=== PATIENT | male | born 1980 | race Caucasian/White ===

== ENCOUNTER 2025-04-09 20:47 | Emergency (ER) | payer OTHER, SELFPAY ==
--- NOTE | ~2025-04-09 | XR_ITS ---
XR elbow LT min 3V Ordering provider: Chelsie Lopez MD History: . fall, pain, swelling . Comparison: None. FINDINGS: BONES: Fracture in the radial head is noted. JOINT SPACES: Normal. SOFT TISSUES: Elevation of the anterior fat pad. No definite joint effusion. IMPRESSION: Fracture in the radial head. Follow-up advised. Reviewed, dictated and finalized at location A.
--- OUTSIDE RECORDS SUMMARY | 2025-04-09 20:49 | XMS_ITS | Clinical Summary ---
Author Organization [facility] Address [address] [place] [address] Care Team Providers Care In Shop Service Technician Name Role Phone Savage Gonzalez DO Primary Care Provider + Allergies No known active allergies Medications No known medications Active Problems Problem Noted Date Diagnosed Date BMI 22.0-22.9, adult 06/30/2020 Encounters Date Type Department Care Team Description 01/15/2025 Results Follow-Up [facility] Family & Internal Medicine [address] [phone] Savage Gonzalez DO VITAMIN D, 25 OH, LIPID PANEL, COMPREHENSIVE METABOLIC PANEL, Additional followed-up results: 2 01/13/2025 9:00 AM CDT Office Visit [facility] Family & Internal [address] [phone] Savage Gonzalez DO Physical (Presents for annual physical. No concerns. ) 01/13/2025 Travel from Last 3 Months Immunizations Immunization Administration Dates Next Due Tdap (Historical Only-select from [employer]) 06/30/2020 Family History Medical History Relation Comments No Known Problems Father Cancer Maternal Grandfather Prostate Ca ncer Cancer Maternal Grandmother Colon Cance r Colon Cancer Maternal Grandmother Diabetes Maternal Uncle 1 Diabetes Maternal Uncle 2 Breast Cancer Mother Cancer Mother Breast Cancer Hypertension Mother Early Paternal Grandfather Heart Attac k at 50 Prostate Cancer Paternal Grandfather Alcohol Abuse Sister Relation Status Comments Father Maternal Grandfather Maternal Grandmother Maternal Uncle 1 Maternal Uncle 2 Mother Paternal Grandfather Sister Social History Tobacco Use Types Packs/Day Years Used Date Smoking Tobacco: Never Smokeless Tobacco: Never Tobacco Cessation:Counseling Given: Not Answered Alcohol Use Standard Drinks/Week Comments Not Currently 0 (1 standard drink = 0.6 oz pur e alcohol) AUDIT-C Answer Date Recorded Q1: How often do you have a drink containing alc ohol? Monthly or less 06/30/2020 Q2: How many drinks containi ng alcohol do you have on a typical day when you are drinking? 1 or 2 06/30/2020 Q3: How often do you have si x or more drinks on one occasion? 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 on file Not on file Not on paradise e Last Filed Vital Signs Vital Sign Reading Time Taken Comments Blood Pressure 100/58 01/13/2025 9:17 AM CDT Pulse 63 01/13/2025 9:17 AM CDT Temperature 36.8 C (98.2 F) 01/13/2025 9:17 AM CDT Respiratory Rate 16 01/13/2025 9:17 AM CDT Oxygen Saturation 98% 01/13/2025 9:17 AM CDT Inhaled Oxygen Concentration - - Weight 75.9 kg (167 lb 6.4 oz) 01/13/2025 9:17 A M CDT Height 180.3 cm (5' 11) 01/13/2025 9:17 AM CDT Body Mass Index 23.35 01/13/2025 9:17 AM CDT Plan of Treatment Upcoming Encounters Date Type Department Care Team (Late st Contact Info) Description 08/06/2025 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 [facility] Family & Internal Medicine [address] [phone] Savage Gonzalez, [address] [place] [address] 01/19/2026 9:00 AM CDT Office Visit [facility] Family & Internal Medicine - [address] [phone] [place] [address] [place] [address] Health Maintenance Due Date Last Done Comments Hepatitis B Vaccines (1 of 3 - 19+ 3-dose series) 2001 Annual Physical 01/13/2026 01/13/2025, 01/11/2024, 06/30/2020 COVID-19 Vaccine (3 - 2023-2 5 season) 2026 01/27/2021, 01/05/2021 Postponed from 06/02/2024 (Patient Refused) DTaP, Tdap and Td Vaccines ( 2 - Td or Tdap) 06/30/2030 06/30/2020 Hepatitis C Completed 01/11/2024 PHQ-2 (Physician [place]) Completed 01/13/2025 HPV Vaccines Aged Out No longer eligi ble based on patient's age to complete this topic Meningococcal B Vaccine Aged Out No l onger eligible based on patient's age to complete this topic Meningococcal Vaccine Aged Out No karuna kelli eligible based on patient's age to complete this topic Pneumococcal Vaccine: Pediatrics (0 to 5 Years) and At-Risk Patients (6 to 49 Years) Aged Out No longer eligible b ased on patient's age to complete this topic RSV Immunizations Under 20 Months Aged Out No longer eligible b ased on patient's age to complete this topic Procedures Procedure Name Priority Date/Time Associated Diagnosis Comments TSH W/REFLEX Routine 01/13/2025 11:35 AM CDT Encounter for preventative adult health care examination Screening for lipid disorders Screening for endocrine, metabolic and immunity disorder CBC W/DIFF AUTOMATED Routine 01/13/2025 11:35 AM CDT Encounter for preventative adult health care examination Screening for lipid disorders Screening for endocrine, metabolic and immunity disorder COMPREHENSIVE METABOLIC PANEL Routine 01/13/2025 11:35 AM CDT Encounter for preventative adult health care examination Screening for lipid disorders Screening for endocrine, metabolic and immunity disorder LIPID PANEL Routine 01/13/2025 11:35 AM CDT Encounter for preventative adult health care examination Screening for lipid disorders Screening for endocrine, metabolic and immunity disorder VITAMIN D, 25 OH Routine 01/13/2025 11:3 5 AM CDT Encounter for preventative adult health care examination Screening for lipid disorders Screening for endocrine, metabolic and immunity disorder Vitamin D deficiency COLLECTION VENOUS BLOOD VENIPUNCTURE Routine 01/13/2025 9:32 AM CDT Encounter for preventative adult health care examination Screening for lipid disorders Screening for endocrine, metabolic and immunity disorder HEPATITIS C ANTIBODY Routine 01/11/2024 10:14 AM CDT Encounter for preventative adult health care examination Screening for lipid disorders Screening for endocrine, metabolic and immunity disorder Need for hepatitis C screening test from Last 3 Months or Most Recently Relevant to Health Maintenance Results * TSH W/REFLEX (01/13/2025 11:35 AM CDT) TSH 1.500 0.358 - 3.740 uIU/ML 01/13/2025 2:48 PM CDT [facility] 01/13/2025 11:3 5 AM CDT Savage Gonzalez DO LABORATORY Final Re sult [facility] [address] [place] [address], [place] [phone] * COMPREHENSIVE METABOLIC PANEL (01/13/2025 11:35 AM CDT) SODIUM S/P/B 140 136 - 145 MMOL/L 01/13/2025 2:[address] [facility] POTASSIUM S/P/B 4.8 3.5 - 5.1 MMOL/L 01/13/2025 2:48 PM CDT [facility] CHLORIDE S/P/B 105 98 - 107 MMOL/L 01/13/2025 2:48 PM CDT [facility] CO2 29.2 21 - 32 MMOL/L 01/13/2025 2:48 PM CDT [facility] GLUCOSE 94 70 - 99 MG/DL 01/13/2025 2:48 PM CDT [facility] BUN 14 7 - 18 MG/DL 01/13/2025 2:48 PM CDT [facility] CREATININE S/P/B 0.85 0.70 - 1.30 MG/DL 01/13/2025 2:48 PM CDT [facility] CALCIUM S/P/B 9.2 8.4 - 10.5 MG/DL 01/13/2025 2:48 PM CDT [facility] BILIRUBIN TOTAL S/P/B 0.6 0.2 - 1.0 MG/DL 01/13/2025 2:48 PM CDT [facility] ALKALINE PHOSPHATASE S/P/B 67 45 - 115 U/L 01/13/2025 2:48 PM CDT [facility] AST 17 15 - 37 U/L 01/13/2025 2:48 PM CDT [facility] ALT 46 16 - 63 U/L 01/13/2025 2:48 PM CDT [facility] TOTAL PROTEIN S/P/B 7.4 6.4 - 8.2 G/DL 01/13/2025 2:48 PM CDT [facility] ALBUMIN S/P/B 4.3 3.4 - 5.0 G/DL 01/13/2025 2:48 PM CDT [facility] ANION GAP 5.8 5 - 15 MMOL/L 01/13/2025 2:48 PM CDT [facility] Comment:REFERENCE RANGE NOT ESTABLISHED OSMOLALITY (CALC) 290 MOSM/KG 04/14/2 025 2:48 PM CDT [facility] Comment:REFERENCE RANGE NOT ESTABLISHED GFR ESTIMATE >90 >90 ML/MIN/1. 73 M2 01/13/2025 2:48 PM CD[address] [facility] GFR NOTES GFR REFERENCE S: 01/13/2025 2:48 PM [address] [facility] Comment: THE ESTIMATED GFR IS CALCULATED USING THE 2020 CKD-EPI EQUATION. THE FOLLOWING CATEGORIES FOR GRADING RENAL FUNCTION ARE RECOMMENDED BY THE INTERNATIONAL SOCIETY OF NEPHROLOGY (KDIGO 2012 CLINICAL PRACTICE GUIDELINE). G1,NORMAL OR HIGH: >89 ml/min/1.73 m2 G2,MILDLY DECREASED: 60-89 ml/min/1.73 m2 G3A,MILDLY TO MODERATELY DECREASED: 45-59 ml/min/1.73 m2 G3B,MODERATELY TO SEVERELY DECREASED: 30-44 ml/min/1.73 m2 G4,SEVERELY DECREASED: 15-29 ml/min/1.73 m2 G5,KIDNEY FAILURE: <15 ml/min/1.73 m2 01/13/2025 11:3 5 AM CDT us Savage Gonzalez DO LABORATORY Final Re sult [facility] [address] [place] [address], [place] [phone] * (ABNORMAL) LIPID PANEL (01/13/2025 11:35 AM CDT) CHOLESTEROL 246(H) <200 MG/DL 01/13/2025 2:48 PM CD[address] [facility] TRIGLYCERIDES 65 <150 MG/DL 01/13/2025 2:48 PM CDT [facility] HDL 45 >40 MG/DL 01/13/2025 2:48 PM CDT [facility] LDL-C 188(H) <100 MG/DL 01/13/2025 2:48 PM CDT [facility] VLDL CALCULATION 13 5 - 28 MG/DL 01/13/2025 2:48 PM CDT [facility] CHOL/HDL RATIO 5.5(H) 0.0 - 4.0 01/13/2025 2:48 [address] [facility] LDL/HDL 4.2(H) 0.41 - 2.13 01/13/2025 2:48 PM CDT [facility] NON HDL CHOLESTEROL 201(H) <140 MG/DL 01/13/2025 2:48 PM CDT [facility] 01/13/2025 11:3 5 AM CDT Savage Gonzalez DO LABORATORY Final Re sult [facility] [address] [place] [address], * CBC W/DIFF AUTOMATED (01/13/2025 11:35 AM CDT) WBC 4.56 4.00 - 10.80 x10'3/uL 01/13/2025 2:[address] [facility] RBC 4.95 4.50 - 6.10 x10'6/uL 01/13/2025 2:10 PM CD[address] [facility] HGB 14.8 13.0 - 18.0 G/DL 01/13/2025 2:10 PM [address] [facility] HCT 43.8 37.0 - 52.0 % 01/13/2025 2:10 PM [address] [facility] MCV 88.5 78.0 - 100.0 FL 01/13/2025 2:10 PM [address] [facility] MCH 29.9 27.0 - 31.0 PG 01/13/2025 2:[address] [facility] MCHC 33.8 33.0 - 36.0 G/DL 01/13/2025 2:10 PM CDT [facility] RDW 12.4 11.5 - 14.5 % 01/13/2025 2:10 PM CDT -[facility] PLT 253 150 - 350 x10'3/uL 01/13/2025 2:10 PM CD[address] [facility] MPV 9.6 7.4 - 10.4 FL 01/13/2025 2:[address] [facility] DIFFERENTIAL TYPE AUTOMATED DIFFERENTIAL 01/13/2025 2:10 [address] [facility] NEUTROPHILS % 43.8 % 01/13/2025 2:[address] [facility] LYMPHOCYTES % 46.1 % 01/13/2025 2:[address] [facility] MONOCYTES % 8.1 % 01/13/2025 2:10 [address] [facility] EOSINOPHILS % 1.8 % 01/13/2025 2:10 PM CDT [facility] BASOPHILS % 0.2 % 01/13/2025 2:[address] [facility] IMMATURE GRANS % 0.0 % 01/13/2025 2:[address] [facility] ABS. NEUTROPHILS 2.00 1.60 - 8.30 x10'3/uL 01/13/2025 2:[address] [facility] ABS. LYMPHOCYTES 2.10 0.80 - 4.70 x10'3/uL 01/13/2025 2:[address] [facility] ABS. MONOCYTES 0.37 0.00 - 1.50 x10'3/uL 01/13/2025 2:[address] [facility] ABS. EOSINOPHILS 0.08 0.00 - 0.40 x10'3/uL 01/13/2025 2:10 [address] [facility] ABS. BASOPHILS 0.01 0.00 - 0.20 x10'3/uL 01/13/2025 2:[address] [facility] ABS. IMMATURE GRANULOCYTES 0.00 0.00 - 0.03 x10'3/uL 01/13/2025 2:[address] [facility] 01/13/2025 11:3 5 AM CDT Savage Gonzalez DO LABORATORY Final Re sult Performing Organization Address [facility] de Phone Number [facility] [address] [place] [address], [place] [phone] * VITAMIN D, 25 OH (01/13/2025 11:35 AM CDT) Pathologist [facility] VITAMIN D 25 HYDROXY TOTAL S/P/B 36.3 30 - 100 NG/ML 01/13/2025 2:48 PM CD[address] [facility] Comment: DEFICIENT <20 INSUFFICIENT 20-30 SUFFICIENT 30-100 01/13/2025 11:3 5 AM CDT Savage Gonzalez DO LABORATORY Final Re sult Performing Organization Address [facility] de Phone Number [address] [address], [place] [phone] * HEPATITIS C ANTIBODY (01/11/2024 10:14 AM CDT) Pathologist [facility] HEPATITIS C AB NON-REACTI VE NON-REACT JAIME 01/11/2024 6:52 PM CDT [facility] Comment: ANTIBODIES TO HCV NOT DETECTED. DOES NOT EXCLUDE THE POSSIBILITY OF EXPOSURE TO HCV. 01/11/2024 10:1 4 AM CDT Savage Gonzalez DO LABORATORY Final Re sult Performing Organization Address [facility] Co de Phone Number [facility] [address] [place] [address], [id number] from Last 3 Months or Most Recently Relevant to Health Maintenance Insurance Care Teams In Shop Service Technician Relationship Specialty Start Date End Date Savage Gonzalez DO [address] [place] [address] PCP - General FAMILY PRACTICE 06/30/20
--- OUTSIDE RECORDS SUMMARY | 2025-04-09 20:50 | XMS_ITS | Continuity of Care Document ---
Author Organization [facility] Address [address] [place] [address] [place] [address] Phone Care Team Providers Care Track Leader Name Role Phone Akira Trent Unavailable Unavailable Procedures Procedure Date OT Re-Evaluation Therapeutic Activities Neuromuscular Re-Ed Therapeutic Exercise Manual Therapy Theratube/band Therapeutic Activities Manual Therapy Therapeutic Exercise Neuromuscular Re-Ed Progress Note Therapeutic Activities Neuromuscular Re-Ed Therapeutic Exercise Manual Therapy Therapeutic Activities Neuromuscular Re-Ed Therapeutic Exercise Manual Therapy Therapeutic Activities Neuromuscular Re-Ed Therapeutic Exercise Manual Therapy Therapeutic Activities Manual Therapy Therapeutic Exercise Neuromuscular Re-Ed OT Evaluation Low Complexity Therapeutic Exercise Therapeutic Activities Manual Therapy PT Re-evaluation Therapeutic Activities Neuromuscular Re-Ed Therapeutic Exercise Therapeutic Activities Neuromuscular Re-Ed Therapeutic Exercise Manual Therapy PT Re-evaluation Neuromuscular Re-Ed Therapeutic Exercise Manual Therapy Therapeutic Activities Neuromuscular Re-Ed Therapeutic Exercise Manual Therapy Therapeutic Activities Neuromuscular Re-Ed Therapeutic Exercise Therapeutic Activities Neuromuscular Re-Ed Therapeutic Exercise Manual Therapy Therapeutic Activities Neuromuscular Re-Ed Therapeutic Exercise Manual Therapy Progress Note Therapeutic Activities Neuromuscular Re-Ed Manual Therapy Therapeutic Exercise Therapeutic Activities Therapeutic Exercise Neuromuscular Re-Ed Manual Therapy Therapeutic Activities Manual Therapy Neuromuscular Re-Ed Therapeutic Exercise Therapeutic Activities Therapeutic Exercise Neuromuscular Re-Ed Manual Therapy Therapeutic Activities Neuromuscular Re-Ed Therapeutic Exercise Manual Therapy PT Evaluation Moderate Complexity Neuromuscular Re-Ed Therapeutic Exercise Advance Directives Directive Yes / No Effective Date File Name No Information Encounters Encounter Description Practice Location Reason(s) For Visit Diagnoses Date Provider Providers Copied on Encounter [facility], [id number], tel:[phone] [place] No Information 0 Ravi Champion. . Referring Provider: Savage Gonzalez , [address] [place] [address], [id number]. tel:[phone] [facility] [address], [id number], tel:[phone] [place] No Information 0 Ravi Champion. . Referring Provider: Savage Gonzalez , [address] [place] [address], [address]. tel:[phone] [place] [address], [id number], tel:[phone] [place] No Information Nov-1 0-202 0 Ravi Zhaoyne. . Referring Provider: Savage Gonzalez , [address] [place] [address], [address]. tel:[phone] [place] [address], [id number], tel:[phone] [place] No Information Nov-0 6-202 0 Ravi Akira. . Referring Provider: Savage Gonzalez , [address] [place] [address], [address]. tel:[phone] [place] [address], [id number], tel:[phone] [place] No Information Nov-0 4-202 0 Ravi Zhaoyne. . Referring Provider: Savage Gonzalez , [address] [place] [address], [address]. tel:[phone] [place] [address], [id number], tel:[phone] [place] No Information Oct-3 0-202 0 Ravi Champion. . Referring Provider: Savage Gonzalez , [address] [place] [address], [address]. tel:[phone] [place] [address], [id number], tel:[phone] [place] No Information Jul-2 8-202 0 Ravi Zhaoyne. . Referring Provider: Savage Gonzalez [address] [place] [address], [address]. tel:[phone] [place] [address], [id number], tel:[phone] [place] No Information 1-202 [address] Yousif [address] [place] [address], [place], [place], [facility], [place]. tel: [phone] Referring Provider: [facility]. [address], [place], [place], [id number], tel:[phone] [place] No Information May-0 4-202 0 Muehl Luis. [address] [place] [address], [address], [place], [facility], [place]. tel: [phone] Referring Provider: [facility]. [address], [place], [place], [id number], [place] tel:[phone] [place] No Information Apr-2 9-202 0 Muehl Luis. [address] [place] [address], [address], [place], [place], [facility], [place]. tel: [phone] Referring Provider: [facility]. [place] [address], [place], [place], [id number], tel:[phone] [place] No Information Apr-2 7-202 0 Muehl Luis. [address] [place] [address], [address], [place], [facility], [place]. tel: [phone] Referring Provider: [facility] [employer]. [address], [place], [place], [id number], tel:[phone] [place] No Information Apr-2 2-202 0 Muehl Luis. [address] [place] [address], [address], [place], [facility], [place]. tel: [phone] Referring Provider: [facility]. [address], [place], [place], [id number], [place] tel:[phone] [place] No Information Apr-2 1-202 0 Muehl Luis. [address] [place] [address], [address], [place], [facility], [place]. tel: [phone] Referring Provider: [facility] [employer]. [address], [place], [id number], [place] tel:[phone] [place] No Information Apr-1 6-202 0 Muehl Luis. [address] [place] [address], [address], [place], [facility], . tel: [phone] Referring Provider: [facility]. [address], [place], [place], [id number], tel:[phone] [place] No Information Apr-1 4-202 0 Muehl Luis. [address] [place] [address], [address], [place], [facility], [place]. tel: [phone] Referring Provider: [facility] [employer]. [address] [place] [address], [place], [place], [id number], tel:[phone] [place] No Information Apr-1 0-202 0 Muehl Luis. [address] [place] [address], [address], [place], [facility], . tel: [phone] Referring Provider: [facility] [employer]. [address], [place], [place], [id number], tel:[phone] [place] No Information Apr-0 7-202 0 Muehl Luis. [address] [place] [address], [address], [place], [facility], [place]. tel: [phone] Referring Provider: [facility] [employer]. [address] [place] [address], [place], [place], [id number], tel:[phone] [place] No Information Apr-0 3-202 0 Muehl Luis. [address] [place] [address], [address], [place], [facility], [place]. tel: [phone] Referring Provider: [facility] [employer]. [address], [place], [place], [id number], tel:[phone] [place] No Information Mar-3 1-202 0 Muehl Luis. [address] [place] [address], [address], [place], [facility], [place]. tel: [phone] Referring Provider: [facility]. Family History Family Member Type Diagnosis Age At Onset No Information Payers Payer name Insurance type Covered libertarian ID Natalie davidson(s) [facility] [id number] Social History Type Description Quantity Date Captured Comments Alcohol Use Details Unknown Caffeine Use Details Unknown Tobacco Use Status Current non-smoker 20 Smoking Status Never smoker Non-Smoking Tobacco Use Details : No Details Available : No Details Available Sex Male Chief Complaint And Reason For Visit No Information Reason For Referral Reason For Referral No Information History Of Present Illness Encounter Date Complaint History Of Prese nt Illness No Information Functional Status Date Functional Assessmen t No Information Instructions Date Instruction Additional Infor mation No Information Assessments Type Assessment Date No Information Patient Care Teams Name Effective Dates (start - stop) Status Members No Information
[2025-04-09 21:00] VITALS: BP 153/84; PULSE 97; RESP 18; TEMP 36.3; O2SAT 98
--- OUTSIDE RECORDS SUMMARY | 2025-04-09 22:09 | XMS_ITS | Clinical Summary ---
Author Organization [facility] Address [address] [place] [address] Care Team Providers Care Brazing Machine Tender Name Role Phone Savage Gonzalez DO Primary Care Provider + Allergies No known active allergies Medications No known medications Active Problems Problem Noted Date Diagnosed Date BMI 22.0-22.9, adult 06/30/2020 Encounters Date Type Department Care Team Description 01/15/2025 Results Follow-Up [facility] Family & Internal Medicine [address] [phone] Savage Gonzalez DO VITAMIN D, 25 OH, LIPID PANEL, COMPREHENSIVE METABOLIC PANEL, Additional followed-up results: 2 01/13/2025 9:00 AM CDT Office Visit [facility] Family & Internal [address] [phone] Savage Gonzalez DO Physical (Presents for annual physical. No concerns. 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 Not on file Not [...] st Contact Info) Description 08/06/2025 8:00 AM [employer] Laboratory Only [facility] Family & Internal Medicine [address] [address] Savage Gonzalez, [address] [place] [address] 01/19/2026 9:00 AM CDT Office Visit [facility] Family & Internal Medicine - [address] [phone] [place] [address] [place] [address] Health Maintenance Due Date Last Done Comments Hepatitis B Vaccines (1 of 3 - 19+ 3-dose series) 2001 Annual Physical 01/13/2026 01/13/2025, 01/11/2024, 06/30/2020 COVID-19 Vaccine (3 - 2023-2 5 season) 2026 01/27/2021, 01/05/2021 Postponed from 06/02/2024 (Patient Refused) DTaP, Tdap and Td Vaccines ( 2 - Td or Tdap) 06/30/2030 06/30/2020 Hepatitis C Completed 01/11/2024 PHQ-2 (Physician [place]) Completed 01/13/2025 HPV Vaccines Aged Out No [...] - 3.740 uIU/ML 01/13/2025 2:48 PM CDT [facility] 01/13/2025 11:3 5 AM CDT Savage Gonzalez DO LABORATORY Final Re sult [facility] [address] [place] [address], [place] [phone] * COMPREHENSIVE METABOLIC PANEL (01/13/2025 11:35 AM CDT) SODIUM S/P/B 140 136 - 145 MMOL/L 01/13/2025 2:48 PM CDT [facility] POTASSIUM S/P/B 4.8 3.5 - 5.1 MMOL/L 01/13/2025 2:48 PM CDT [facility] CHLORIDE S/P/B 105 98 - 107 MMOL/L 01/13/2025 2:48 PM CDT [facility] CO2 29.2 21 - 32 MMOL/L 01/13/2025 2:48 PM CDT [facility] GLUCOSE 94 70 - 99 MG/DL 01/13/2025 2:48 PM CDT [facility] BUN 14 7 - 18 MG/DL 01/13/2025 2:48 PM CDT [facility] CREATININE S/P/B 0.85 0.70 - 1.30 MG/DL 01/13/2025 2:48 PM CDT [facility] CALCIUM S/P/B 9.2 8.4 - 10.5 MG/DL 01/13/2025 2:48 PM CDT [facility] BILIRUBIN TOTAL S/P/B 0.6 0.2 - 1.0 MG/DL 01/13/2025 2:48 PM CDT [facility] ALKALINE PHOSPHATASE S/P/B 67 45 - 115 U/L 01/13/2025 2:48 PM CDT [facility] AST 17 15 - 37 U/L 01/13/2025 2:48 PM CDT [facility] ALT 46 16 - 63 U/L 01/13/2025 2:48 PM CDT [facility] TOTAL PROTEIN S/P/B 7.4 6.4 - 8.2 G/DL 01/13/2025 2:48 PM CDT [facility] ALBUMIN S/P/B 4.3 3.4 - 5.0 G/DL 01/13/2025 2:48 PM CDT [facility] ANION GAP 5.8 5 - 15 MMOL/L 01/13/2025 2:48 PM CDT [facility] Comment:REFERENCE RANGE NOT ESTABLISHED OSMOLALITY (CALC) 290 MOSM/KG 04/14/2 025 2:48 PM CDT [facility] Comment:REFERENCE RANGE NOT ESTABLISHED GFR ESTIMATE >90 >90 ML/MIN/1. 73 M2 01/13/2025 2:48 PM CDT [facility] GFR NOTES GFR REFERENCE S: 01/13/2025 2:48 PM CDT [facility] Comment: THE ESTIMATED GFR IS [...] Savage Gonzalez DO LABORATORY Final Re sult [facility] [address] [place] [address], [place] [phone] * (ABNORMAL) LIPID PANEL (01/13/2025 11:35 AM CDT) CHOLESTEROL 246(H) <200 MG/DL 01/13/2025 2:48 PM CDT [facility] TRIGLYCERIDES 65 <150 MG/DL 01/13/2025 2:48 PM CDT [facility] HDL 45 >40 MG/DL 01/13/2025 2:48 PM CDT [facility] LDL-C 188(H) <100 MG/DL 01/13/2025 2:48 PM CDT [facility] VLDL CALCULATION 13 5 - 28 MG/DL 01/13/2025 2:48 PM CDT [facility] CHOL/HDL RATIO 5.5(H) 0.0 - 4.0 01/13/2025 2:48 PM CDT [facility] LDL/HDL 4.2(H) 0.41 - 2.13 01/13/2025 2:48 PM CDT [facility] NON HDL CHOLESTEROL 201(H) <140 MG/DL 01/13/2025 2:48 PM CDT [facility] 01/13/2025 11:3 5 AM CDT Savage Gonzalez DO LABORATORY Final Re sult [facility] [address] [place] [address], * CBC W/DIFF AUTOMATED (01/13/2025 11:35 AM CDT) WBC 4.56 4.00 - 10.80 x10'3/uL 01/13/2025 2:10 PM CDT [facility] RBC 4.95 4.50 - 6.10 x10'6/uL 01/13/2025 2:10 PM CDT [facility] HGB 14.8 13.0 - 18.0 G/DL 01/13/2025 2:10 PM CDT [facility] HCT 43.8 37.0 - 52.0 % 01/13/2025 2:10 PM CDT [facility] MCV 88.5 78.0 - 100.0 FL 01/13/2025 2:10 PM CDT [facility] MCH 29.9 27.0 - 31.0 PG 01/13/2025 2:10 PM CDT [facility] MCHC 33.8 33.0 - 36.0 G/DL 01/13/2025 2:10 PM CDT [facility] RDW 12.4 11.5 - 14.5 % 01/13/2025 2:10 PM CDT [facility] PLT 253 150 - 350 x10'3/uL 01/13/2025 2:10 PM CDT [facility] MPV 9.6 7.4 - 10.4 FL 01/13/2025 2:10 PM CDT [facility] DIFFERENTIAL TYPE AUTOMATED DIFFERENTIAL 01/13/2025 2:10 PM CDT [facility] NEUTROPHILS % 43.8 % 01/13/2025 2:10 PM CDT [facility] LYMPHOCYTES % 46.1 % 01/13/2025 2:10 PM CDT [facility] MONOCYTES % 8.1 % 01/13/2025 2:10 PM CDT [facility] EOSINOPHILS % 1.8 % 01/13/2025 2:10 PM CDT [facility] BASOPHILS % 0.2 % 01/13/2025 2:10 PM CDT [facility] IMMATURE GRANS % 0.0 % 01/13/2025 2:10 PM CDT [facility] ABS. NEUTROPHILS 2.00 1.60 - 8.30 x10'3/uL 01/13/2025 2:10 PM CDT [facility] ABS. LYMPHOCYTES 2.10 0.80 - 4.70 x10'3/uL 01/13/2025 2:10 PM CDT [facility] ABS. MONOCYTES 0.37 0.00 - 1.50 x10'3/uL 01/13/2025 2:10 PM CDT [facility] ABS. EOSINOPHILS 0.08 0.00 - 0.40 x10'3/uL 01/13/2025 2:10 PM CDT [facility] ABS. BASOPHILS 0.01 0.00 - 0.20 x10'3/uL 01/13/2025 2:10 PM CDT [facility] ABS. IMMATURE GRANULOCYTES 0.00 0.00 - 0.03 x10'3/uL 01/13/2025 2:10 PM CDT [facility] 01/13/2025 11:3 5 AM CDT Savage Gonzalez DO LABORATORY Final Re sult Performing Organization Address [facility] de Phone Number [facility] [address] [place] [address], [place] [phone] * VITAMIN D, 25 OH (01/13/2025 11:35 AM CDT) Pathologist [facility] VITAMIN D 25 HYDROXY TOTAL S/P/B 36.3 30 - 100 NG/ML 01/13/2025 2:48 PM CDT [facility] Comment: DEFICIENT <20 INSUFFICIENT 20-30 SUFFICIENT 30-100 01/13/2025 11:3 5 AM CDT Savage Gonzalez DO LABORATORY Final Re sult Performing Organization Address [facility] de Phone Number [address] [address], [place] [phone] * HEPATITIS C ANTIBODY (01/11/2024 10:14 AM CDT) Pathologist [facility] HEPATITIS C AB NON-REACTI VE NON-REACT JAIME 01/11/2024 6:[address] [facility] Comment: ANTIBODIES TO HCV NOT DETECTED. DOES NOT EXCLUDE THE POSSIBILITY OF EXPOSURE TO HCV. 01/11/2024 10:1 4 AM CDT Savage Gonzalez DO LABORATORY Final Re sult Performing Organization Address [facility] Co de Phone Number [facility] [address] [place] [address], [phone] from Last 3 Months or Most Recently Relevant to Health Maintenance Insurance Care Teams Brazing Machine Tender Relationship Specialty Start Date End Date Savage Gonzalez DO [address] [place] [address] PCP - General FAMILY PRACTICE 06/30/20
--- OUTSIDE RECORDS SUMMARY | 2025-04-09 22:09 | XMS_ITS | Continuity of Care Document ---
Author Organization [facility] Address [address] [place] [address] [place] [address] Phone Care Team Providers Care Oral And Maxillofacial Surgery Name Role Phone Akira Trent Unavailable Unavailable Procedures Procedure Date OT Re-Evaluation Therapeutic Activities Neuromuscular Re-Ed Therapeutic Exercise Manual Therapy Theratube/band Therapeutic Activities Neuromuscular Re-Ed Therapeutic Exercise Manual Therapy Progress Note Therapeutic Activities Neuromuscular Re-Ed Therapeutic Exercise Manual Therapy Therapeutic Activities Neuromuscular Re-Ed Therapeutic Exercise Manual Therapy Therapeutic Activities Neuromuscular Re-Ed Therapeutic Exercise Manual Therapy Therapeutic Activities Neuromuscular Re-Ed Therapeutic Exercise Manual Therapy OT Evaluation Low Complexity Therapeutic Activities Therapeutic Exercise Manual Therapy PT Re-evaluation Therapeutic Activities Neuromuscular Re-Ed Therapeutic Exercise Therapeutic Activities Neuromuscular Re-Ed Therapeutic Exercise Manual Therapy PT Re-evaluation Neuromuscular Re-Ed Therapeutic Exercise Manual Therapy Therapeutic Activities Neuromuscular Re-Ed Therapeutic Exercise Manual Therapy Therapeutic Activities Neuromuscular Re-Ed Therapeutic Exercise Therapeutic Activities Neuromuscular Re-Ed Therapeutic Exercise Manual Therapy Therapeutic Activities Neuromuscular Re-Ed Therapeutic Exercise Manual Therapy Progress Note Therapeutic Activities Neuromuscular Re-Ed Therapeutic Exercise Manual Therapy Therapeutic Activities Neuromuscular Re-Ed Therapeutic Exercise Manual Therapy Therapeutic Activities Manual Therapy Neuromuscular Re-Ed Therapeutic Exercise Therapeutic Activities Neuromuscular Re-Ed Therapeutic Exercise Manual Therapy Therapeutic Activities Neuromuscular Re-Ed Therapeutic Exercise Manual Therapy PT Evaluation Moderate Complexity Neuromuscular Re-Ed Therapeutic Exercise Advance Directives Directive Yes / No Effective Date File Name No Information Encounters Encounter Description Practice Location Reason(s) For Visit Diagnoses Date Provider Providers Copied on Encounter [facility], [id number], tel:[phone] [place] No Information 0 Ravi Champion. . Referring Provider: Savage Gonzalez , [address] [place] [address], [address]. tel:[phone] [facility] [address], [id number], tel:[phone] [place] No Information 0 Ravi Champion. . Referring Provider: Savage Gonzalez , [address] [place] [address], [address]. tel:[phone] [place] [address], [id number], tel:[phone] [place] No Information Nov-1 0-202 0 Ravi Zhaoyne. . Referring Provider: Savage Gonzalez , [address] [place] [address], [address]. tel:[phone] [place] [address], [id number], tel:[phone] [place] No Information Nov-0 6-202 0 Ravi Akira. . Referring Provider: Savage Gonzalez , [address] [place] [address], [address]. tel:[phone] [place] [address], [id number], tel:[phone] [place] No Information Nov-0 4-202 0 Ravi Zhaoyne. . Referring Provider: Savage Gonzalez , [address] [place] [address], [address]. tel:[phone] [place] [address], [id number], tel:[phone] [place] No Information Oct-3 0-202 0 Ravi Champion. . Referring Provider: Savage Gonzalez , [address] [place] [address], [address]. tel:[phone] [place] [address], [id number], tel:[phone] [place] No Information Jul-2 8-202 0 Ravi Zhaoyne. . Referring Provider: Savage Gonzalez [address] [place] [address], [address]. tel:[phone] [place] [address], [id number], tel:[phone] [place] No Information 1-202 0 Bill Yousif [address] [place] [address] [address], [place], [place], [facility], [place]. tel: [phone] Referring Provider: [facility]. [address], [place], [place], [id number], tel:[phone] [place] No Information May-0 4-202 0 Muehl Luis. [address] [place] [address], [address], [place], [facility], [place]. tel: [phone] Referring Provider: [facility]. [address], [place], [place], [id number], [place] tel:[phone] [place] No Information Apr-2 9-202 0 Muehl Luis. [address] [place] [address], [address], [place], [facility], [place]. tel: [phone] Referring Provider: [facility]. [place] [address], [place], [place], [id number], tel:[phone] [place] No Information Apr-2 7-202 0 Muehl Luis. [address] [place] [address], [address], [place], [facility], [place]. tel: [phone] Referring Provider: [facility]. [address], [place], [place], [id number], tel:[phone] [place] No Information Apr-2 2-202 0 Muehl Luis. [address] [place] [address], [address], [place], [facility], [place]. tel: [phone] Referring Provider: [facility]. [address], [place], [place], [id number], [place] tel:[phone] [place] No Information Apr-2 1-202 0 Muehl Luis. [address] [place] [address], [address], [place], [facility], [place]. tel: [phone] Referring Provider: [facility]. [address], [place], [place], [id number], [place] tel:[phone] [place] No Information Apr-1 6-202 0 Muehl Luis. [address] [place] [address], [address], [place], [facility], . tel: [phone] Referring Provider: [facility]. [address], [place], [place], [id number], tel:[phone] [place] No Information Apr-1 4-202 0 Muehl Luis. [address] [place] [address], [address], [place], [facility], [place]. tel: [phone] Referring Provider: [facility]. [address] [address], [place], [place], [id number], tel:[phone] [place] No Information Apr-1 0-202 0 Muehl Luis. [address] [place] [address], [address], [place], [facility], . tel: [phone] Referring Provider: [facility]. [address], [place], [place], [id number], tel:[phone] [place] No Information Apr-0 7-202 0 Muehl Luis. [address] [place] [address], [address], [place], [facility], [place]. tel: [phone] Referring Provider: [facility]. [address] [address], [place], [place], [id number], tel:[phone] [place] No Information Apr-0 3-202 0 Muehl Luis. [address] [place] [address], [address], [place], [facility], [place]. tel: [phone] Referring Provider: [facility]. [address], [place], [place], [id number], tel:[phone] [place] No Information Mar-3 1-202 0 Muehl Luis. [address] [place] [address], [address], [place], [facility], [place]. tel: [phone] Referring Provider: [facility]. Family History Family Member Type Diagnosis Age At Onset No Information Payers Payer name Insurance type Covered republican ID Natalie davidson(s) [facility] [id number] Social History Type Description Quantity Date Captured [...]
--- NOTE | 2025-04-09 22:10 | ED_ITS ---
HPI - Fall General Chief Complaint: Fall Stated Complaint: arm pain / fall Time Seen by Provider: 04/09/25 21:20 History of Present Illness HPI Narrative: Patient is a 44-year-old male who presents to the emergency department this evening status post a left elbow injury. Patient states that he was playing tennis and fell backwards landing onto his left elbow. Patient states that his elbow did hit concrete floor. Minimal swelling noted to the left elbow joint. Patient does state that he has some paresthesias to the left forearm otherwise denies any additional injuries or concerns. Related Data Allergies Allergy/AdvReac Type Severity Reaction Status Date / Time No Known Allergies Allergy Verified 04/09/25 21:49 Review of Systems Review of Systems: All systems are reviewed and are negative unless stated otherwise in the HPI. [facility] Family History Family History Other Diabetes mellitus Social History Social History Smoking status: Never smoker Second hand tobacco smoke exposure: No Alcohol intake: current Exam Narrative: General: Alert, awake, afebrile, in no acute distress. HEENT: PERRL, no rhinorrhea, no post nasal drip, oropharynx clear. Neck: Trachea midline, no JVD, no lymphadenopathy. Cardiovascular: Regular rate and rhythm, no murmurs, rubs or gallops, no peripheral edema. Respiratory: Clear to auscultation bilaterally, no tachypnea, no wheezing, no rhonchi, no rubs, no respiratory distress. Abdomen: Soft, nontender, nondistended, no rebound, no guarding, no peritoneal signs. Musculoskeletal: Mild swelling to the left elbow joint, decreased range of motion at the left elbow joint secondary to pain, intact with full range of motion at the left shoulder and wrist joints, intact radial and ulnar all pulses. Skin: No rashes or petechia, no signs of infection. Psychiatric: Alert and oriented, normal behavior and judgment for situation. Neurological: Alert and oriented to person, place, and time. Follows all commands. No focal deficits, speech is clear and fluent. Course Vital Signs Vital signs: Vital Signs Temperature 97.4 F L 04/09/25 21:00 Pulse Rate 97 04/09/25 21:00 Respiratory Rate 18 04/09/25 21:00 Blood Pressure 153/84 H 04/09/25 21:00 Pulse Oximetry 98 04/09/25 21:00 Oxygen Delivery Room Air 04/09/25 21:00 Temperature 97.4 F L 04/09/25 21:00 Pulse Rate 97 04/09/25 21:00 Respiratory Rate 18 04/09/25 21:00 Blood Pressure 153/84 H 04/09/25 21:00 Pulse Oximetry 98 04/09/25 21:00 Oxygen Delivery Room Air 04/09/25 21:00 MDM - Fall MDM Narrative Medical decision making narrative: The patient was evaluated by myself in the emergency department. History is obtained from patient who is an independent historian and physical exam was performed. External medical records were reviewed at this time. Imaging studies obtained included left elbow x-ray which was independently interpreted by me revealing nondisplaced radial head fracture, which is pending final radiology interpretation. Patient was placed posterior long arm splint. Differential diagnosis considerations include fracture, dislocation, musculoskeletal strain. Comorbidities impacting this visit include none. I have evaluated and discussed social determinants of health with the patient that could potentially impact subsequent diagnosis and treatment plans. On repeat assessment of the patient, reevaluation revealed that the patient is doing well and is in no acute distress. Patient symptoms have improved since he arrived to our emergency department. Repeat vital signs were all reviewed and noted to be stable. Differential diagnosis and treatment plan were discussed with the patient at bedside. Patient agrees with discussion and after shared medical decision making agrees with discharge. All questions were answered to the patient's satisfaction. Patient will follow up with Orthopedics in 3-5 days. Script for [facility] sent to patient's pharmacy to take as needed for pain. Patient was provided with strict return precautions and instructed to return to the emergency department if any new or worsening symptoms develop. The patient was discharged in stable condition. Discharge Plan Discharge Clinical Impression: Fracture of radial head, left, closed Patient Disposition: Home Condition: Improved Instructions: Antibiotic Form, Elbow Fracture (DC) Additional Instructions: Please follow-up with orthopedic surgeon you were provided with today within the next 5-7 days. Take the prescribed pain medication as needed for pain. Return to the emergency department for new or worsening symptoms develop. Patient Language: Dominican Prescriptions: New hydrocodone-acetaminophen 5-325 mg tablet 1 tablet PO Q8H PRN (Reason: pain) Qty: 14 0RF Follow-up/Referrals: Vik Johnson MD [Physician] - 1 Week Carlos,DO Savage [Primary Care Provider] - Time of Disposition: 22:12
[2025-04-09 22:38] VITALS: BP 135/90; PULSE 95; RESP 16; O2SAT 98
== END 2025-04-09 22:47 | disposition home or self-care (01) ==
PROVIDERS: Emergency Provider Emergency Medicine; PCP Student in an Organized Health Care Education/Training Program
DX: S52.122A Displaced fracture of head of left radius, initial encounter for closed fracture (principal); W01.0XXA Fall on same level from slipping, tripping and stumbling without subsequent striking against object, initial encounter
CPT/HCPCS: 29105; 73080; 99284; A4565